=== PATIENT | female | born 1940 | race Caucasian/White ===

== ENCOUNTER 2020-06-15 22:38 | Emergency (ER) | payer OTHER ==
[2020-06-15 23:03] VITALS: BMI 25.4
[2020-06-15] MEDS ORDERED: ACETAMINOPHEN 325 MG TABLET (FP) PO ONE (23:19)
[2020-06-15] MEDS ORDERED: ACETAMINOPHEN 325 MG TABLET (FP) ONE (23:30)
[2020-06-16 01:03] LABS: BASO % 0.7 % (0-2.0); EOS % 1.3 % (0-4.5); HEMATOCRIT 34.1 % (32.4-45.2); HEMOGLOBIN 10.9 GM/dL (10.7-15.3); LYMPH % 14.7 % (8-40); MCH 29.6 pg (25.7-33.7); MCHC 32.1 g/dl (32.0-36.0); MEAN CELL VOLUME 92.1 fl (80-96); MEAN PLT VOLUME 6.9 fl (7.5-11.1); MONO % 6.6 % (3.8-10.2); NEUT % 76.7 % (42.8-82.8); PLATELET COUNT 476 K/MM3 (134-434); RDW 13.8 % (11.6-15.6); WHITE BLOOD COUNT 13.5 K/mm3 (4.0-10.0)
[2020-06-16 01:15] LABS: ALBUMIN 3.6 g/dl (3.4-5.0); BLOOD UREA NITROGEN 28.1 mg/dL (7-18); CALCIUM 9.1 mg/dL (8.5-10.1); CO2 30 mmol/L (21-32); GLUCOSE,RANDOM 90 mg/dL (74-106)
[2020-06-16 01:16] LABS: ANION GAP 6 MMOL/L (8-16); CHLORIDE 105 mmol/L (98-107); POTASSIUM 5.2 mmol/L (3.5-5.1); SODIUM 140 mmol/L (136-145)
[2020-06-16 01:18] LABS: CREATININE 0.7 mg/dL (0.55-1.3); SGOT/AST 21 U/L (15-37); SGPT/ALT 27 U/L (13-61)
[2020-06-16 01:20] LABS: BILIRUBIN,TOTAL 0.3 mg/dL (0.2-1); TOT PROT 6.9 g/dl (6.4-8.2)
[2020-06-16 01:21] LABS: ALK PHOS 84 U/L (45-117)
[2020-06-16 02:00] LABS: INR 0.93 (0.83-1.09); PROTHROMBIN TIME (PATIENT) 11.5 SEC (9.7-13.0)
[2020-06-16 02:03] LABS: ACTIVATED PTT 28.7 SECONDS (25.2-36.5)
[2020-06-16 02:13] LABS: CHLORIDE 104 mmol/L (98-107); POTASSIUM 4.5 mmol/L (3.5-5.1); SODIUM 141 mmol/L (136-145)
[2020-06-16 02:15] LABS: ALBUMIN 3.4 g/dl (3.4-5.0); ANION GAP 4 MMOL/L (8-16); CO2 33 mmol/L (21-32)
[2020-06-16 02:16] LABS: BLOOD UREA NITROGEN 28.4 mg/dL (7-18); GLUCOSE,RANDOM 93 mg/dL (74-106)
[2020-06-16 02:19] LABS: CREATININE 0.7 mg/dL (0.55-1.3); SGOT/AST 15 U/L (15-37); SGPT/ALT 24 U/L (13-61)
[2020-06-16 02:20] LABS: BILIRUBIN,TOTAL 0.3 mg/dL (0.2-1); TOT PROT 6.6 g/dl (6.4-8.2)
[2020-06-16 02:22] LABS: ALK PHOS 81 U/L (45-117)
[2020-06-16] MEDS ORDERED: LIDOCAINE HCL 1%, 10 MG/ML (50 mL VIAL) SQ ONE (03:47)
[2020-06-16] MEDS ORDERED: traMADol HCL 50 MG TABLET PO ONE (04:33)
[2020-06-16] MEDS ORDERED: traMADol HCL 50 MG TABLET ONE (04:58)
[2020-06-16 09:49] VITALS: BP 122/61; PULSE 71; TEMP 98.3
[2020-06-16] MEDS ORDERED: ACETAMINOPHEN 1000 MG/100 ML VIAL (NON FORMULARY) IVPB ONE (09:55)
[2020-06-16] MEDS ORDERED: ACETAMINOPHEN 325 MG TABLET (FP) ONE (09:56)
== END 2020-06-16 10:42 | disposition home or self-care (01) ==
LOC: JER 22:38
PROC: 3E0333Z Introduction of Anti-inflammatory into Peripheral Vein, Percutaneous Approach (ICD-10-PCS; principal; 2020-06-15)
DX: S52.91XA Unspecified fracture of right forearm, initial encounter for closed fracture (principal)
CPT/HCPCS: 36415; 71045-TC-FY; 72170-TC-FY; 73070-TC-RT-FY; 73090-TC-RT-FY; 73110-TC-RT-FY; 73130-TC-RT-FY; 80053; 84484; 85025; 85610; 85730; 93005; 93010; 99285-25; J0131